=== PATIENT | female | born 1975 | race Caucasian/White ===

== ENCOUNTER 2020-02-18 10:22 | Emergency (ER) | payer OTHER ==
--- NOTE | 2020-02-18 14:12 | ER ---
Nurse's Notes [facility] Name: Rupinder West Age: 44 yrs Sex: Female : 1975 Arrival Date: 02/18/2020 Time: 10:24 Bed 19 Private MD: Clara Herndon K Diagnosis: Acute upper respiratory infection, unspecified Presentation: 02/17 11:05 Chief complaint: Patient states: sudden onset of sore throat, muscle aches, nasal aa5 congestion, and cough. 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 11:05 Coronavirus screen: cough unrelated to allergies, sore throat, Client presents with at aa5 least one sign or symptom that may indicate coronavirus-19. Standard/surgical mask placed on the client. Provider contacted for isolation considerations. Ebola Screen: Patient negative for fever greater than or equal to 101.5 degrees Fahrenheit, and additional compatible Ebola Virus Disease symptoms. Initial Sepsis Screen: Does the patient meet any 2 criteria? No. Patient's initial sepsis screen is negative. Does the patient have a suspected source of infection? No. Patient's initial sepsis screen is negative. Risk Assessment: Do you want to hurt yourself or someone else? Patient reports no desire to harm self or others. Onset of symptoms was February 2020. 11:05 Acuity: ALYSA 4 aa5 11:05 Method Of Arrival: Ambulatory aa5 Triage Assessment: 11:05 General: Appears in no apparent distress. uncomfortable, ill, Behavior is calm, bp cooperative, appropriate for age. Pain: Denies pain. EENT: Reports nasal congestion. Neuro: No deficits noted. Cardiovascular: No deficits noted. Respiratory: Reports cough that is. GI: No signs and/or symptoms were reported involving the gastrointestinal system. : No signs and/or symptoms were reported regarding the genitourinary system. Derm: No deficits noted. Musculoskeletal: No deficits noted. Historical: - Allergies: 11:05 Diflucan; aa5 - PMHx: 11:05 Asthma; aa5 - PSHx: 11:05 Tubal ligation; Novasure; Essure procedure; aa5 - Immunization history:: Adult Immunizations up to date. - Social history:: Smoking status: Patient denies any tobacco usage or history of. Screenin:05 Abuse screen: Denies threats or abuse. Denies injuries from another. Nutritional bp screening: No deficits noted. Tuberculosis screening: No symptoms or risk factors identified. Fall Risk None identified. Assessment: 11:05 General: SEE TRIAGE NOTE. bp 12:00 Reassessment: Patient appears in no apparent distress at this time. Patient and/or bp family updated on plan of care and expected duration. Pain level reassessed. Patient is alert, oriented x 3, equal unlabored respirations, skin warm/dry/pink. ALL CURRENT ORDERS COMPLETED, RESULTS PENDING. 13:00 Reassessment: Patient appears in no apparent distress at this time. No changes from bp previously documented assessment. Patient and/or family updated on plan of care and expected duration. Pain level reassessed. Patient is alert, oriented x 3, equal unlabored respirations, skin warm/dry/pink. LAB RESULTS PENDING. 14:16 Reassessment: PT D/C HOME AMBULATORY, DX WITH VIRAL URI. bp Vital Signs: 11:05 BP 111 / 51; Pulse 80; Resp 18 S; Temp 98.3(O); Pulse Ox 99% on R/A; Weight 62.6 kg aa5 (R); Height 5 ft. 2 in. (157.48 cm) (R); Pain 1/10; 12:00 BP 111 / 51; Pulse 68; Resp 16; Pulse Ox 98% ; bp 13:00 BP 93 / 61; Pulse 62; Resp 17; Pulse Ox 99% ; bp 14:16 BP 99 / 54; Pulse 61; Resp 17; Temp 98.5; Pulse Ox 100% ; bp 11:05 Body Mass Index 25.24 (62.60 kg, 157.48 cm) aa5 ED Course: 10:24 Patient arrived in ED. ag5 10:24 Clara Herndon MD is Private Physician. ag5 11:05 Arm band placed on. aa5 11:05 Patient has correct armband on for positive identification. Bed in low position. Call bp light in reach. Side rails up X2. 11:14 Tahir Chester, JOSE is Primary Nurse. bp 11:23 Young Dallas NP is PHCP. pm1 11:23 Yuriy Pandey MD is Attending Physician. pm1 11:34 Triage completed. aa5 11:55 Flu and/or RSV swab sent to lab. Strep swab sent to lab. bp 14:19 No provider procedures requiring assistance completed. Patient did not have IV access bp during this emergency room visit. Administered Medications: No medications were administered Outcome: 14:11 Discharge ordered by . pm1 14:20 Discharged to home bp 14:20 Condition: stable 14:20 Discharge instructions given to patient, Instructed on discharge instructions, follow up and referral plans. Demonstrated understanding of instructions, follow-up care. 14:41 Patient left the ED. bp Signatures: Judy Oliver, RN RN aa5 Young Dallas, JASIEL BOOSTER PLANT OPERATOR pm1 Tahir Chester, JOSE RN bp Lorena Mckenna ag5
--- NOTE | 2020-02-18 14:12 | EDPHYS ---
Physician Documentation [facility] Name: Rupinder West Age: 44 yrs Sex: Female : 1975 Arrival Date: 02/18/2020 Time: 10:24 Bed 19 Private MD: Clara Herndon K ED Physician Yuriy Pandey HPI: 02/17 12:40 This 44 yrs old Female presents to ER via Ambulatory with complaints of R/O pm1 Covid. 12:40 The patient or guardian reports cough, with no sputum, flu symptoms, body aches, sore pm1 throat and runny nose. Severity of symptoms: in the emergency department the symptoms are actually worse. Modifying factors: The symptoms are alleviated by nothing, the symptoms are aggravated by nothing. Associated signs and symptoms: Pertinent negatives: chest pain, diarrhea, ear ache, fever, nausea, vomiting, shortness of breath. 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 She started having some body aches with hot flashes for the past few days. Last night she started having a sore throat and a cough. She is concerned about the covid exposure and would like testing. Historical: - Allergies: 11:05 Diflucan; aa5 - PMHx: 11:05 Asthma; aa5 - PSHx: 11:05 Tubal ligation; Novasure; Essure procedure; aa5 - Immunization history:: Adult Immunizations up to date. - Social history:: Smoking status: Patient denies any tobacco usage or history of. ROS: 12:40 Eyes: Negative for injury, pain, redness, and discharge. pm1 12:40 Neck: Negative for injury, pain, and swelling, Cardiovascular: Negative for chest pain, palpitations, and edema. 12:40 Abdomen/GI: Negative for abdominal pain, nausea, vomiting, diarrhea, and constipation, Back: Negative for injury and pain, MS/Extremity: Negative for injury and deformity, Skin: Negative for injury, rash, and discoloration, Neuro: Negative for headache, weakness, numbness, tingling, and seizure. 12:40 Constitutional: Positive for body aches, Negative for fever, poor PO intake. 12:40 ENT: Positive for rhinorrhea, sore throat, Negative for ear pain. 12:40 Respiratory: Positive for cough, Negative for shortness of breath, wheezing. Exam: 12:40 Constitutional: This is a well developed, well nourished patient who is awake, alert, pm1 and in no acute distress. Head/Face: Normocephalic, atraumatic. 12:40 Neck: Trachea midline, no thyromegaly or masses palpated, and no cervical lymphadenopathy. Supple, full range of motion without nuchal rigidity, or vertebral point tenderness. No Meningismus. 12:40 Skin: Warm, dry with normal turgor. Normal color with no rashes, no lesions, and no evidence of cellulitis. MS/ Extremity: Pulses equal, no cyanosis. Neurovascular intact. Full, normal range of motion. 12:40 ENT: External ear(s): are unremarkable, Ear canal(s): are normal, TM's: are normal, Mouth: no acute changes, Posterior pharynx: Airway: no evidence of obstruction, Tonsils: bilaterally enlarged, with erythema, no exudate, no ulcerations, peritonsillar mass, is not appreciated, pooling of secretions, is not appreciated. 12:40 Cardiovascular: Exam negative for acute changes, Rate: normal, Rhythm: regular, Pulses: no pulse deficits are appreciated, Heart sounds: normal, normal S1and S2. 12:40 Respiratory: Exam negative for acute changes, respiratory distress, shortness of breath, Breath sounds: are clear throughout, no bronchial sounds, no decreased breath sounds, rhonchi, no wheezing. 12:40 Neuro: Exam negative for acute changes, Orientation: is normal, Mentation: is normal, Motor: is normal, moves all fours. Vital Signs: 11:05 BP 111 / 51; Pulse 80; Resp 18 S; Temp 98.3(O); Pulse Ox 99% on R/A; Weight 62.6 kg aa5 (R); Height 5 ft. 2 in. (157.48 cm) (R); Pain /10; 12:00 BP 111 / 51; Pulse 68; Resp 16; Pulse Ox 98% ; bp 13:00 BP 93 / 61; Pulse 62; Resp 17; Pulse Ox 99% ; bp 14:16 BP 99 / 54; Pulse 61; Resp 17; Temp 98.5; Pulse Ox 100% ; bp 11:05 Body Mass Index 25.24 (62.60 kg, 157.48 cm) aa5 MDM: 11:25 Patient medically screened. pm1 12:45 Data reviewed: vital signs. Data interpreted: Pulse oximetry: on room air is 98 %. pm1 Interpretation: normal. 14:10 Counseling: I had a detailed discussion with the patient and/or guardian regarding: the pm1 historical points, exam findings, and any diagnostic results supporting the discharge/admit diagnosis, lab results, the need for outpatient follow up, to return to the emergency department if symptoms worsen or persist or if there are any questions or concerns that arise at home. 02/17 11:25 Order name: Flu; Complete Time: 13:32 pm1 02/17 11:25 Order name: Strep; Complete Time: 13:32 pm1 02/17 11:25 Order name: Droplet/Contact Precautions; Complete Time: 11:32 pm1 02/17 13:28 Order name: Throat Culture [facility] 02/17 14:05 Order name: SARS-COV-2 RT PCR; Complete Time: 14:10 [facility] 02/17 11:25 Order name: Labs collected and sent; Complete Time: 11:55 pm1 Administered Medications: No medications were administered Disposition: 15:02 Co-signature as Attending Physician, Yuriy Pandey MD. rn Disposition: 02/18/20 14:11 Discharged to Home. Impression: Acute upper respiratory infection, unspecified. - Condition is Stable. - Discharge Instructions: Upper Respiratory Infection, Adult, Viral Respiratory Infection. - Medication Reconciliation Form, Thank You Letter, Antibiotic Education, Prescription Opioid Use form. - Follow up: Emergency Department; When: As needed; Reason: Worsening of condition. Follow up: Private Physician; When: 2 - 3 days; Reason: Recheck today's complaints, Continuance of care, Re-evaluation by your physician. - Problem is new. - Symptoms have improved. Signatures: Dispatcher [employer] [facility] Yuriy Pandey MD MD rn Calderon, Audri RN RN aa5 Young Dallas, JASIEL MANAGER SPA pm1 Tahir Chester, JOSE RN bp Corrections: (The following items were deleted from the chart) 12:51 12:07 CORONAVIRUS+.BRZ ordered. [facility] 14:41 14:11 02/18/2020 14:11 Discharged to Home. Impression: Acute upper respiratory bp infection, unspecified. Condition is Stable. Forms are Medication Reconciliation Form, Thank You Letter, Antibiotic Education, Prescription Opioid Use. Follow up: Emergency Department; When: As needed; Reason: Worsening of condition. Follow up: Private Physician; When: 2 - 3 days; Reason: Recheck today's complaints, Continuance of care, Re-evaluation by your physician. Problem is new. Symptoms have improved. pm1
[2020-02-18 15:15] VITALS: BP 99/54; TEMP 98.5; O2SAT 100
== END 2020-02-18 14:41 | disposition home or self-care (01) ==
LOC: ER 10:22
DX: J06.9 Acute upper respiratory infection, unspecified (principal); Z20.828 Contact with and (suspected) exposure to other viral communicable diseases; Z88.1 Allergy status to other antibiotic agents
CPT/HCPCS: 87070; 87081; 87804 ×2; 99283; U0003